=== PATIENT | female | born 1965 | race Caucasian/White ===

== ENCOUNTER 2019-06-11 14:24 | Emergency (ER) | payer MEDICAID ==
[~2019-06-11] VITALS: Ht 134.9 cm; Wt 68.9 kg
[2019-06-11 14:31] VITALS: BP 124/79
--- NOTE | 2019-06-11 14:37 | NUR ---
WAIT AT LOBBY.
--- NOTE | 2019-06-11 15:24 | NUR ---
PT AMUBLATED TO [facility]
--- NOTE | 2019-06-11 15:30 | NUR ---
C/O LEFT HAND PAIN, POSSIBLE SPRAIN. DENIES SOB, CP. RESP EVEN AND UNLABORED.
--- NOTE | 2019-06-11 16:00 | NUR ---
JOYCE LIZAMA EVALUATING PATIENT AT THIS TIME
--- NOTE | 2019-06-11 16:14 | NUR ---
PLACED SHAWN WRAP ON LEFT HAND OF PT
[2019-06-11 16:17] VITALS: BP 124/79
== END 2019-06-11 16:17 | disposition home or self-care (01) ==
LOC: MED 14:24
DX: S66.912A Strain of unspecified muscle, fascia and tendon at wrist and hand level, left hand, initial encounter (principal); I10 Essential (primary) hypertension; W22.01XA Walked into wall, initial encounter; Y93.89 Activity, other specified; Y92.89 Other specified places as the place of occurrence of the external cause; Y99.8 Other external cause status
CPT/HCPCS: 73130; 99283

== ENCOUNTER 2021-11-20 15:46 | Emergency (ER) | payer MEDICAID, OTHER ==
[~2021-11-20] VITALS: Ht 154.9 cm; Wt 76.2 kg
[2021-11-20 15:48] VITALS: BP 168/101
--- NOTE | 2021-11-20 15:58 | NUR ---
56 y/o female, pt states she thinks she may have had an allergic reaction 1 week ago. pt states she started having itching and removed the jewlery on her ears. pt states she still has the itching and swelling on bl ears. hydrocortisone provied no relief with benadryl. skin is pink/warm/dry, vitiligo baseline. a&o x4 with even and steady gait. denies swelling or closing of throat, sob. pt denies any fever, cp, or cough at this time. pt states pain is 0/10 at this time, states she has more itching sensation. vss. patient positioned for comfort. hob elevated. bed down. ermd made aware of pt. pmh: dm2, thyroid, gout, htn nka med: benadryl, hydrocortisone
--- NOTE | 2021-11-20 16:25 | NUR ---
PA [place] evaluating patient at bedside.
[2021-11-20] MEDS ORDERED: HYDR28CR38 TP (16:32)
[2021-11-20] MEDS ORDERED: PRED20TA5 PO (16:32)
[2021-11-20] MEDS ORDERED: LORA10SG1 PO (16:32)
--- NOTE | 2021-11-20 16:39 | NUR ---
Patient discharged with v/s stable. Written and verbal after care instructions given. Patient alert, oriented and verbalized understanding of instructions. Ambulatory with steady gait. All questions addressed prior to discharge. ID band removed. Patient advised to follow up with PMD. Rx of Cortizone, Claritin and Deltasone given. Opportunity to ask questions provided and answered.
--- NOTE | 2021-11-20 16:40 | NUR ---
Chart checked and completed. The patient's care was reviewed and supervised by Terrie Mraion RN.
== END 2021-11-20 16:39 | disposition home or self-care (01) ==
LOC: MED 15:46
DX: L25.9 Unspecified contact dermatitis, unspecified cause (principal); I10 Essential (primary) hypertension; E03.9 Hypothyroidism, unspecified
CPT/HCPCS: 99283